=== PATIENT | female | born 1930 | race Caucasian/White ===

== ENCOUNTER 2019-04-09 07:58 | Emergency (ER) | payer MEDICARE, BC ==
--- NOTE | 2019-04-09 08:03 | EDM.PDOC ---
"ED HPI GENERAL MEDICAL PROBLEM - General Chief Complaint: Upper Extremity Injury/Pain Stated Complaint: PT FELL AND INJURED L WRIST Time Seen by Provider: 04/09/19 08:02 Source of Information: Reports: Patient, Old Records, RN, RN Notes Reviewed History Limitations: Reports: No Limitations - History of Present Illness INITIAL COMMENTS - FREE TEXT/NARRATIVE: Pt presents to ER from assisted living by POV with c/o left wrist pain sustained from a ground level fall at her apartment this morning. Pt denies head or neck injury. She admits to some pain/soreness to the low back and tailbone area. Onset: Today, Sudden Duration: Constant Location: Reports: Back, Upper Extremity, Left Quality: Reports: Ache Severity: Moderate Improves with: Reports: Immobilization Worsens with: Reports: Movement Associated Symptoms: Reports: No Other Symptoms Left Wrist Pain Score (Numeric/FACES): 5 - Related Data Allergies Allergy/AdvReac Type Severity Reaction Status Date / Time Milk Containing Products Allergy Unknown Rash Verified 04/09/19 08:16 peach [Campbell] Allergy Unknown Hives Verified 04/09/19 08:16 pseudoephedrine HCl Allergy Unknown Cardiac Verified 04/09/19 08:16 [From Sudafed] Arrest decongestants Allergy Unknown Cannot Uncoded 02/12/14 21:47 Remember fresh pork Allergy Unknown Hives Uncoded 02/12/14 21:47 green peppers Allergy Unknown Rash Uncoded 02/12/14 21:47 pollen Allergy Unknown Cannot Uncoded 02/12/14 21:47 Remember Home Meds: Home Meds Acetaminophen [Tylenol Arthritis Pain] 650 mg PO Q8H PRN 02/12/14 [History] Aspirin [Adult Low Dose Aspirin EC] 1 tab PO DAILY 02/12/14 [History] Calcium Carbonate [Calcium] 600 mg PO BID 02/12/14 [History] Glucosamine Sulfate 2KCl [Glucosamine] 1,000 mg PO BID 02/12/14 [History] Loratadine [Claritin] 10 mg PO DAILY 02/12/14 [History] Lovastatin 20 mg PO DAILY 02/12/14 [History] Lysine 500 mg PO DAILY 02/12/14 [History] Niacin [Slo-Niacin] 1 tab PO BID 02/12/14 [History] Propranolol [Inderal] 20 mg PO DAILY 02/12/14 [History] Vitamin B Complex [B Complex] 1 tab PO DAILY 02/12/14 [History] Furosemide 20 mg PO DAILY 04/09/19 [History] Latanoprost 1 drop EYEBOTH BEDTIME 04/09/19 [History] Timolol Maleate 1 drop EYERT BID 04/09/19 [History] Past Medical History HEENT History: Reports: Allergic Rhinitis, Impaired Vision Cardiovascular History: Reports: High Cholesterol Musculoskeletal History: Reports: Arthritis, Back Pain, Chronic, Osteoarthritis , Other (See Below) (Scoliosis) Endocrine/Metabolic History: Reports: Obesity/BMI 30+ Social & Family History - Family History Family Medical History: Noncontributory - Living Situation & Occupation Living situation: Reports: Alone, Assisted Living Occupation: Retired Review of Systems - Review of Systems Review Of Systems: ROS reveals no pertinent complaints other than HPI. ED EXAM, GENERAL - Physical Exam Exam: See Below Exam Limited By: No Limitations General Appearance: Alert, WD/WN, No Apparent Distress Eye Exam: Bilateral Eye: Normal Inspection Ears: Normal External Exam Nose: Normal Inspection Throat/Mouth: Normal Inspection, Normal Voice Head: Atraumatic, Normocephalic Neck: Normal Inspection, Supple, Non-Tender, Full Range of Motion Respiratory/Chest: No Respiratory Distress, Lungs Clear, No Accessory Muscle Use , Chest Non-Tender Cardiovascular: Regular Rate, Rhythm GI/Abdominal: Normal Bowel Sounds, Soft, Non-Tender Back Exam: Decreased Range of Motion (chronic), Paraspinal Tenderness (lower lumbar), Vertebral Tenderness (lower lumbar, sacral, coccyx). No: CVA Tenderness (L), CVA Tenderness (R) Extremities: No Pedal Edema, Arm Pain (Left wrist tender to palpation, soft tissue swelling, bruising, and painful ROM) Neurological: Alert, Oriented, CN II-XII Intact, Normal Cognition, No Motor/ Sensory Deficits Psychiatric: Normal Affect, Normal Mood Skin Exam: Warm, Dry, Intact, Normal Color, No Rash ED TRAUMA EXTREMITY PROCEDURES - Joint Reduction Site: Other (Left wrist) Sedation: Hematoma/Fracture Block Local Anesthesia - Lidocaine (Xylocaine): 1% Plain Local Anesthetic Volume: Other (20cc) Pre-Procedure NV Status: Normal Post-Procedure NV Status: Normal Technique: Other (Manual closed reduction) Number of Attempts: 1 Post-Reduction Imaging: Acceptably Reduced Joint Reduction Complications: No - Splinting Left Upper Extremity Splint Site: Left wrist Pre-Procedure NV Status: Normal Post-Procedure NV Status: Normal Splint Material: Fiberglass Splint Design: Volar Applied & Form Fitted By: Provider Provider Post-Splint Application NV Check: NV Status Normal, Good Position Complications: No Course - Vital Signs Last Recorded V/S: Last Vital Signs Temp 97.3 F 04/09/19 08:10 Pulse 69 04/09/19 08:10 Resp 16 04/09/19 08:10 BP 156/91 H 04/09/19 08:10 Pulse Ox 98 04/09/19 08:10 - Orders/Labs/Meds Orders: Active Orders 24 hr Category Date Time Status Splinting [RC] ASDIRECTED Care 04/09/19 08:36 Active Lumbar Spine 2 or 3V [CR] Urgent Exams 04/09/19 08:06 Taken Sacrum Coccyx Min 2V [CR] Urgent Exams 04/09/19 08:06 Taken Wrist 2V Lt [CR] Urgent Exams 04/09/19 09:30 Ordered Wrist Comp Min 3V Lt [CR] Urgent Exams 04/09/19 08:03 Taken Meds: Medications Discontinued Medications Generic Name Dose Route Start Last Admin Trade Name Freq PRN Reason Stop Dose Admin Hydrocodone Bitart/Acetaminophen 1 tab 04/09/19 08:31 04/09/19 08:37 Remington 325-5 Mg PO 04/09/19 08:32 1 tab ONETIME ONE Administration Lidocaine HCl 30 ml 04/09/19 08:31 04/09/19 09:35 Xylocaine-Mpf 1% INJECT 04/09/19 08:32 30 ml ONETIME ONE Administration - Radiology Interpretation Free Text/Narrative:: [facility] Final Radiology Report Call: [phone] assistance Online chat: [email or web address] Name: HOLA FLOWERS Age: 88Years F Date: 04/09/2019 SSN: -- : [id number] Study: XR SPINE LUMBOSACRAL 2 OR 3 VIEWS Requesting Physician: RICKIE REYES Images: 3 Addl Studies: Provided Clinical History: Contrast: Contrast Medium: Contrast Amount: Contrast Method: Page 1 of 2 PROCEDURE INFORMATION: Exam: XR Lumbosacral Spine, 2 or 3 Views Exam date and time: 04/09/2019 8:16 AM Clinical history: 88 years old, female; Injury or trauma; Fall; Initial encounter; Blunt trauma (contusions or hematomas) TECHNIQUE: Imaging protocol: XR of the lumbosacral spine, 2 or 3 views. COMPARISON: No relevant prior studies available. FINDINGS: Vertebrae: There is diffuse demineralization/osteopenia of the regional skeleton. Severe narrowing of the L1-L2, L4-L5 and L5-S1 disc spaces. Anterior wedging of the L2 vertebra. Grade 1 retrolisthesis of L2 on L3. Grade 1 anterolisthesis of L4 on L5 and L5 on S1. Slight anterior wedging of the L4 vertebra. Intraperitoneal space: Multiple calcific densities within the right upper quadrant. Vasculature: The vasculature demonstrates diffuse severe atherosclerotic calcification. Soft tissues: Normal. IMPRESSION: 1. Multiple calcific densities within the right upper quadrant. 2. Severe narrowing of the L1-L2, L4-L5 and L5-S1 disc spaces. 3. Anterior wedging of the L2 vertebra. 4. Grade 1 retrolisthesis of L2 on L3. 5. Grade 1 anterolisthesis of L4 on L5 and L5 on S1. 6. Slight anterior wedging of the L4 vertebra. Thank you for allowing us to participate in the care of your patient. HOLA FLOWERS | Final Radiology Report CONFIDENTIALITY STATEMENT This report is intended only for use by the referring physician, and only in accordance with law. If you received this in error, call [phone]. Page 2 of 2 Dictated and Authenticated by: Jefferson Shane MD 04/09/2019 9:13 AM Central Time ([place] & [place]) [facility] [place] [facility] Final Radiology Report Call: [phone] assistance Online chat: [email or web address] Name: HOLA FLOWERS Age: 88Years F Date: 04/09/2019 SSN: -- : [id number] Study: XR SACRUM & COCCYX MIN 2 VIEWS Requesting Physician: RICKIE REYES Images: 2 Addl Studies: Provided Clinical History: Contrast: Contrast Medium: Contrast Amount: Contrast Method: CONFIDENTIALITY STATEMENT This report is intended only for use by the referring physician, and only in accordance with law. If you received this in error, call [phone]. Page 1 of 1 PROCEDURE INFORMATION: Exam: XR Sacrum and Coccyx, 2 or More Views Exam date and time: 04/09/2019 8:17 AM Clinical history: 88 years old, female; Injury or trauma; Fall; Initial encounter; Blunt trauma (contusions or hematomas) TECHNIQUE: Imaging protocol: XR of the sacrum and coccyx, 2 or more views. COMPARISON: No relevant prior studies available. FINDINGS: Bones/joints: There is evidence of degenerative disc disease at the lower lumbar spine. No significant narrowing of the hip joint space. No large marginal osteophytes or subchondral cystic changes are present. No displaced fracture or dislocation. Soft tissues: Normal. Vasculature: There are numerous benign phleboliths in the pelvis. IMPRESSION: No acute findings Thank you for allowing us to participate in the care of your patient. Dictated and Authenticated by: Jefferson Shane MD 04/09/2019 9:14 AM Central Time ([place] & [place]) [facility] Final Radiology Report Call: [phone] assistance Online chat: [email or web address] Name: HOLA FLOWERS Age: 88Years F Date: 04/09/2019 SSN: -- : [id number] Study: XR WRIST COMPLETE MIN OF 3 VIEWS LEFT Requesting Physician: RICKIE REYES Images: 3 Addl Studies: Provided Clinical History: Contrast: Contrast Medium: Contrast Amount: Contrast Method: CONFIDENTIALITY STATEMENT This report is intended only for use by the referring physician, and only in accordance with law. If you received this in error, call [phone]. Page 1 of 1 PROCEDURE INFORMATION: Exam: XR Left Wrist Exam date and time: 04/09/2019 8:03 AM Clinical history: 88 years old, female; Injury or trauma; Fall; Initial encounter; Blunt trauma (contusions or hematomas; Wrist; Left TECHNIQUE: Imaging protocol: XR Left wrist. Views: 3 or more views. COMPARISON: No relevant prior studies available. FINDINGS: Bones/joints: There are moderate degenerative changes at the first metacarpal/ carpal joint space. Minimally displaced fracture involving the ulnar styloid process. Impacted distal radial fracture with dorsal angulation. Soft tissues: There is soft tissue swelling appreciated. IMPRESSION: 1. Minimally displaced fracture involving the ulnar styloid process. 2. Impacted distal radial fracture with dorsal angulation. Thank you for allowing us to participate in the care of your patient. Dictated and Authenticated by: Jefferson Shane MD 04/09/2019 9:16 AM Central Time ([place] & [place]) Post-reduction left wrist: acceptable reduction of fracture angulation. Departure - Departure Time of Disposition: 09:33 Disposition: Home, Self-Care 01 Condition: Fair Clinical Impression: Acute exacerbation of chronic low back pain Fracture of distal radius and ulna Qualifiers: Encounter type: initial encounter Fracture type: closed Laterality: left Qualified Code(s): S52.502A - Unspecified fracture of the lower end of left radius, initial encounter for closed fracture Fall as cause of accidental injury at home as place of occurrence Qualifiers: Encounter type: initial encounter Qualified Code(s): W19.XXXA - Unspecified fall, initial encounter - Discharge Information *PRESCRIPTION DRUG MONITORING PROGRAM REVIEWED*: No *COPY OF PRESCRIPTION DRUG MONITORING REPORT IN PATIENT RENATA: No Instructions: Cast or Splint Care, Adult, [id number], Colles Fracture Forms: ED Department Discharge Additional Instructions: Rx: Hydrocodone APAP 5mg/325mg Do not remove splint. Monitor your finger tips, return to ER if finger tips become blue/purple, cold or painful. Call [facility] tomorrow morning to schedule an appointment for evaluation and treatment of you left wrist fracture. (Your x-rays have been loaded to the clinics computer already). - My Orders Last 24 Hours: My Active Orders 04/09/19 08:03 Wrist Comp Min 3V Lt [CR] Urgent 04/09/19 08:06 Lumbar Spine 2 or 3V [CR] Urgent Sacrum Coccyx Min 2V [CR] Urgent 04/09/19 08:36 Splinting [RC] ASDIRECTED 04/09/19 09:30 Wrist 2V Lt [CR] Urgent - Assessment/Plan Last 24 Hours: My Active Orders 04/09/19 08:03 Wrist Comp Min 3V Lt [CR] Urgent 04/09/19 08:06 Lumbar Spine 2 or 3V [CR] Urgent Sacrum Coccyx Min 2V [CR] Urgent 04/09/19 08:36 Splinting [RC] ASDIRECTED 04/09/19 09:30 Wrist 2V Lt [CR] Urgent"
[2019-04-09 08:10] VITALS: BP 156/91; PULSE 69
[2019-04-09] MEDS ORDERED: Acetaminophen/HYDROcodone 325-5 MG Tab PO ONE (08:31)
[2019-04-09] MEDS ORDERED: Lidocaine 1% 30 ML SDV INJECT ONE (08:31)
== END 2019-04-09 10:00 | disposition home or self-care (01) ==
LOC: DL.ED 07:58
DX: S52.502A Unspecified fracture of the lower end of left radius, initial encounter for closed fracture (principal); S52.612A Displaced fracture of left ulna styloid process, initial encounter for closed fracture; M54.5 Low back pain; G89.29 Other chronic pain; E78.00 Pure hypercholesterolemia, unspecified; Z91.011 Allergy to milk products; Z91.018 Allergy to other foods; Z91.048 Other nonmedicinal substance allergy status; Z88.8 Allergy status to other drugs, medicaments and biological substances; Z79.82 Long term (current) use of aspirin; Z79.899 Other long term (current) drug therapy; W18.30XA Fall on same level, unspecified, initial encounter; Y92.039 Unspecified place in apartment as the place of occurrence of the external cause
CPT/HCPCS: 25605; 72100; 72220; 73100; 73110; 99283; A9270; J2001; 99284